=== PATIENT | female | born 1980 | race Caucasian/White ===

== ENCOUNTER → 2019-07-11 10:58 | Outpatient (CLI) | payer OTHER, SELFPAY ==
--- NOTE | 2019-07-11 | DI.CT.S_ITS ---
PROCEDURE: CT SOFT TISSUE NECK W CON INDICATIONS: Cervicalgia TECHNIQUE: After the administration of intravenous contrast, 3.0 mm axial sections acquired from the sella to the aortic arch. Additional oblique axial 3.0 mm sections acquired through the pharynx. 3 mm thick coronal and sagittal reformats were generated. For radiation dose reduction, the following was used: automated exposure control. COMPARISON: None. FINDINGS: Image quality: Excellent. Lymph nodes: Bilateral adenopathy is present within the neck with the largest lymph node identified in the right level IIA measuring 14 mm. There are extensive areas of patchy and confluent adenopathy within the supraclavicular regions bilaterally. The largest is identified on the left measuring 14 mm. Confluent areas of soft tissue density extends into the mediastinum with anterior mediastinal mass measuring 30 mm AP by 62 mm transverse. A contained area of central low-attenuation. Confluent soft tissue density also extends to the mid mediastinal encasing the ascending thoracic aorta as well as partially visualized portions of the pulmonary artery. Partially visualized hilar adenopathy is also present. There is mass effect on the subclavian vasculature with significant narrowing. The SVC is also significantly narrowed. Subcutaneous fat within the lower neck near the level of the clavicle and the straight a hazy appearance suggestive of fluid versus infiltrative soft tissue masses. Vessels: Visualized vasculature appears patent. Neck spaces: The oropharynx, nasopharynx, and pharynx demonstrate no mucosal lesions. The vocal cords, false vocal cords, pyriform sinuses, epiglottis, vallecula, and tongue base all appear normal. Extramucosal spaces appear unremarkable. Glands: The parotid and submandibular glands appear normal. Thyroid gland demonstrates bilateral foci of low attenuation.. Miscellaneous: Visualized brain and orbits appear normal. Minimal pleural effusions are noted. Superficial soft tissues appear normal. Bones: No suspicious bony lesions. Visualized sinuses and mastoids appear unremarkable. IMPRESSION: 1. Extensive adenopathy within the neck extending to the mediastinum and visualized hilar regions as described above. Overall appearance is highly concerning for neoplastic etiology such as lymphoma. 2. Marked narrowing of the mediastinal vasculature secondary to confluent soft tissue masses as above. Dictated by: Tatiana Wang M.D. on 07/11/2019 at 11:01 Approved by: Tatiana Wang M.D. on 07/11/2019 at 11:09
== END ==
PROVIDERS: PCP Family Medicine; Visit Provider Family Medicine
DX: M54.2 Cervicalgia (principal); R59.1 Generalized enlarged lymph nodes
CPT/HCPCS: 70491; Q9967

== ENCOUNTER → 2019-07-16 09:30 | Outpatient (CLI) | payer OTHER, SELFPAY ==
--- NOTE | 2019-07-16 09:44 | DI.CT.S_ITS ---
PROCEDURE: CT CHEST ABD PEL W CON INDICATIONS: Enlarged lymph nodes, unspecified TECHNIQUE: After the administration of oral and intravenous contrast, 5 mm thick sections acquired from the lung apices to the symphysis. 5 mm coronal and sagittal reformats were performed, with additional 7 mm coronal MIP reformats through the lungs. For radiation dose reduction, the following was used: automated exposure control, adjustment of mA and/or kV according to patient size. COMPARISON: [facility], CT, CT SOFT TISSUE NECK W CON, 07/11/2019, 11:04. FINDINGS: Image quality: Excellent. CHEST: Lungs and pleura: No acute airspace opacities. No pleural effusions or pneumothorax. Central and peripheral airways appear patent and normal in caliber. Mediastinum: There is marked mediastinal adenopathy. A large conglomerate cristal mass is present in the prevascular space, measuring 5.7 x 5.1 cm. There is a soft tissue density in the right cardiophrenic angle measuring 1.2 x 5.2 cm, likely enlarged cristal tissue. Right hilar lymphadenopathy is present measuring 2 cm. Heart size is normal. There is no pericardial effusion. Thoracic aorta and central pulmonary arteries are normal in size. There is moderate narrowing of superior vena cava by compression of mediastinal mass. Esophagus is normal in caliber. No hiatal hernia. Chest wall: Bilateral supraclavicular are present with enlarged lymph nodes measuring 1.2 x 1.8 cm on the left and 1.0 x 1.5 cm on the right. Enlarged lymph nodes are those seen in the axillae bilaterally. There is a 7 mm nodule in the right thyroid lobe. ABDOMEN: Solid organs: Liver is normal in size and enhancement. Gallbladder is normal. Biliary system is non dilated. Pancreas enhances normally. Spleen is normal in size and enhancement. No adrenal nodules. Kidneys demonstrate normal size and enhancement, without hydronephrosis. Peritoneum and bowel: Bowel loops demonstrate normal wall thickness and caliber. No free fluid or air. Nodes and vessels: Mild enlarged retrocrural lymph nodes measure up to 1 cm in short access. There are mild para-aortic lymph node measuring 1 cm in short axis. No retroperitoneal or mesenteric adenopathy by size criteria. Aorta and inferior vena cava are normal in size. Miscellaneous: No ventral hernias. PELVIS: Genitourinary: Bladder wall thickness is normal. IUD in uterus. There is a trace amount of free fluid, which is within physiologic limits. Miscellaneous: No inguinal hernias or adenopathy. Bones: No suspicious bony lesions. No vertebral body compression fractures. IMPRESSION: 1. Mediastinal, right hilar, bilateral supraclavicular and bilateral axillary lymphadenopathy, suspicious for lymphoma. Differential diagnosis is metastases. Infectious or inflammatory etiologies are felt less likely. If clinically indicated, the left axillary lymph nodes may be sampled percutaneously and ultrasound guidance. 2. Borderline enlarged retrocrural and retroperitoneal lymph nodes are indeterminate but likely represent the same malignant process. If clinically indicated, PET CT may be helpful. 3. A small right thyroid nodule. A thyroid ultrasound is suggested for followup. 4. Moderate narrowing of the superior vena cava by compression of Dictated by: Sandra Navarro M.D. on 07/16/2019 at 12:30 Approved by: Sandra Navarro M.D. on 07/16/2019 at 13:06
--- NOTE | 2019-07-18 14:20 | ONC.MSW ---
Description: New Referral Initial Navigation T/C Activity: Called pt to confirm that we've received her referral, introduced myself as the navigator, explained role and availability of ongoing support services. Pt is scheduled to have her biopsy with Dr. Rodgers tomorrow at . No immediate support/resource needs were identified at this time, will forward to scheduling for an urgent appt time.
== END ==
PROVIDERS: PCP Family Medicine; Visit Provider Family Medicine
DX: R59.1 Generalized enlarged lymph nodes (principal); E04.1 Nontoxic single thyroid nodule; I87.1 Compression of vein
CPT/HCPCS: 71260; 74177; Q9967

== ENCOUNTER 2019-07-24 08:38 | Day surgery (SDC) | payer OTHER, SELFPAY ==
[2019-07-22 12:40] VITALS: BMI 18.1
[2019-07-24] VITALS (7 sets, daily range): BP systolic 86–115; BP diastolic 46–75; PULSE 87–98; RESP 8–22; TEMP 36.2–37.7; O2SAT 16–100; BMI 18.1
--- NOTE | 2019-07-24 | PATH_ITS ---
[facility] Accession Number: [id number] . 01 Material submitted: . PART A: axilla - LEFT AXILLA LYMPH NODE (IN FORMALIN) PART B: flank - LEFT FLANK (RASH) . 01 Clinical history: . Per discussion with Dr. Saxena, who reviewed available clinic notes in the medical record: 39-year-old female who presented with neck pain, lymphadenopathy, and a morbilliform rash. A recent CT report notes bilateral axillary, mediastinal, and right hilar lymphadenopathy. . 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 B.) SKIN, LEFT FLANK, PUNCH BIOPSY: Lichenoid interface dermatitis, consistent with a drug eruption (see Comment B) . GUI 08/01/2019 1607 Local . 01 Comment: A.) Flow cytometry performed on an RPMI-preserved, portion of the fresh left axillary lymph node identified an abnormal blast population with intermediate cell size and expression of uniform, intermediate-level CD34; intermediate-high CD38; high-level CD7; low-intermediate CD45; probable low-level CD22, CD5, and CD33; and TdT on a large subset. There was no definitive coexpression of CD19 on the abnormal blasts, and they were negative for surface CD117, HLA-DR, CD13, CD15, CD16, CD64, CD14, CD11b, CD11c, CD10, CD20, CD2, CD3, CD4, CD8, CD56, CD57, CD103, kappa, and lambda. The complete flow cytometry report may be referenced in [id number]. Immunohistochemical studies performed on the paraffin-embedded left axillary lymph node tissue indicate that the abnormal CD34+ blasts express uniform cytoplasmic CD3 and variable CD79a; and are negative for myeloperoxidase, CD1a, CD5, CD2, CD4, CD8, CD56, and CD20. The blasts also appear predominantly negative for CD33 by immunohistochemistry. . 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 Although initial studies in pediatric populations with ETP-ALL indicated a very poor outcome, more recent studies have suggested prognosis for the ETP phenotype is not significantly different from that of other T-ALL phenotypes. A similar conclusion was also reached in a recent small study of adults with ETP-ALL/LBL. . Preliminary findings were discussed with Dr. Teodora Saxena on 07/30/2019 at 8:55 AM PST. . REFERENCES: 1. Yuliet SH, et al. WHO Classification of Tumours of Haematopoietic and Lymphoid Tissues. Revised 4th Ed., [employer], [place], 2017, pp 209-212. 2. JENY Braga, et al. (2016) CD33, not early precursor T-cell phenotype, is associated with adverse outcome in adult T-cell acute lymphoblastic leukaemia. Br. J. Haematology [id number]. . B.) Sections show interface changes with apoptotic keratinocytes, basket weaved stratum corneum, and a mild superficial perivascular lymphohistiocytic inflammatory infiltrate with scattered eosinophils. PAS stain is negative for fungal hyphae and shows only focal scarce spores consistent with Pityrosporum spores. Clinicopathological correlation is advised. . The diagnosis and interpretive comments for Part B of this case were provided by Dr. Sherlyn Mejia, Dermatopathologist. . . 01 Electronically signed: . Tiffany Garcia MD, Pathologist NPI- [id number] . 01 Gross description: . (A) Received in formalin, labeled left axilla lymph node, is a lymph node (1.3 x 1.0 x 0.6 cm). Serially sectioned and entirely submitted in cassette A1. (B) Received in formalin, labeled punch biopsy of rash, left flank, is a 0.4 x 0.3 x 0.2 cm punch biopsy of story-white skin. The resection margin is inked blue. Bisected and entirely submitted in cassette B1. ([id number]) /MRV 07/25/2019 1037 Local . 01 Microscopic: . A.) H/E-stained sections of Part A (the left axillary lymph node) reveal cross-sections of a mildly enlarged lymph node with extensive architectural effacement by an atypical cellular infiltrate with a diffuse histologic pattern. The atypical cells appear intermediate in size, and have very high nuclear to cytoplasmic ratio, open chromatin, and occasional small to moderate nucleoli. In some foci, the atypical cells exhibit a slight molding pattern next to each other, imparting a slightly corded infiltrative appearance. Mitotic figures are easily identified. Several areas of the lymph node have prominent erythrocyte congestion, but no definitive zones of either incipient or geographic necrosis are seen. . Select immunohistochemical studies* were performed on block A1 for further evaluation of the atypical infiltrate, with accompanying positive and negative controls. The atypical cells exhibit uniform cytoplasmic expression of CD3; uniform and strong surface and cytoplasmic CD7; uniform granular cytoplasmic expression of CD34 in the best-preserved, best-stained areas; and variable CD79a. The atypical cells are negative for myeloperoxidase, CD1a, CD2, CD5, CD4, CD8, CD56, and CD20 by immunohistochemistry. An immunostain for CD33 exhibits reactivity on a large subset of tissue histiocytes and probable dendritic cells in the tissue; however, the atypical cells appear predominantly negative for CD33 by immunohistochemistry. A moderate subset of background mature T-cells with a normal to slightly elevated CD4:CD8 ratio of about 5:1 are present throughout the tissue; and a smaller subset of background CD20+/CD79a+ B-cells form scattered cortical collections/nodules. . * Technical note: These tests and their performance characteristics have been determined by [facility]. They have not been cleared or approved by the U.S. Food and Drug Administration. The FDA has determined that such clearance or approval is not necessary. These tests are used for clinical purposes, and should not be regarded as investigational or for research. . The technical component of the myeloperoxidase and CD33 immunohistochemical studies was performed by [facility] in [place], [place]; with interpretation of these studies performed by Dr. Tiffany Garcia, Hematopathologist at [facility]. . 01 Pathologist provided ICD-10: C83.54, L30.9 . 01 CPT . 567767, 947144, S71221, R62656, X55730 Performed at: 01 [facility] [address] [place] [address], [place], [place] [id number] MD Kelby Oconnell MD Phone: [phone]
--- NOTE | 2019-07-24 08:54 | SUR.PREOP ---
PT HAS FULL BODY RASH, HAS HAD THIS SINCE FOR SEVERAL DAYS, STATES DR CORREA IS AWARE, STATES SHE IS NOW ON PREDNISONE FOR THE ITCH AND THIS IS HELPING,
--- NOTE | 2019-07-24 09:41 | PM.PREOP ---
Pre-operative Note Interval Note History & Physical reviewed/Exam performed by Physician: Yes Changes to H&P: Yes H&P completed within 30 days and has changed as indicated here:: Patient has a diffuse maculopapular rash on her chest and arms. Has been on prednisone taper by her .
[2019-07-24] MEDS: CEFAZOLIN 2 GM/100 ML FROZ.PIGGY IV (09:50)
[2019-07-24] MEDS: BUPIVACAINE 0.25% W/ EPI (PF) 10 ML VIAL 20 ML INJ (10:10)
--- NOTE | 2019-07-24 11:11 | PM.OP.1 ---
Operative Date/Time/Diagnoses Date of procedure: 07/24/19 Time of procedure: 11:12 Pre-op diagnosis: Neck, chest and axillary lymphadenopathy with morbilliform rash Post-op diagnosis: same Procedure & Clinicians Procedure: left axillary lymph node excisional biopsy, left flank skin punch biopsy Same procedure as scheduled: Yes Indications: lymphadenopathy, morbiliform rash Surgeon: Eulalia Huddleston Yes if Unassisted: Yes Anesthesia Type: General (LMA) Operative Notes Findings: large axillary lymph nodes; diffuse morbiliform rash on neck, chest, and abdomen Closure Type: primary Specimen(s): other (Left axillary lymph node, left flank 4 mm skin punch biopsy) Estimated Blood Loss (mL): 5 Procedure in detail: The patient was brought into the operating room and placed supine on the OR table. Sequential compression devices were placed on both legs and turned on. Appropriate perioperative antibiotics were given prior to the start of surgery. General anesthesia was induced the patient was intubated with an LMA. The left chest and axilla were prepped and draped in sterile fashion. Surgical time-out was conducted. Local anesthetic was injected under the skin of a skin crease in the left axilla overlying the a group of palpable lymph nodes. An 8 cm curvilinear incision was then made in the skin of the axillary skin crease. Dissection was then carried down through the dermis and subcutaneous fat until the clavicle pectoral fascia was reached. The clavipectoral fascia was then opened. I palpated within the axillary fat and identified a large lymph node. I then gently grasped the fat tissue overlying the node and carefully dissected out the node. I used silk ties to tie off the vascular and lymphatic vessels going to the node. After prolonged tedious dissection I was finally able to get the node out. It was adherent to a couple of other nodes in the surrounding axillary fascia. Once the node was freed, it was passed off the field. I packed a dry Ray-Abhinav in the axilla. I then used a fresh 10 blade to cut the note in half, and then bivalved the larger of the 2 halves. Two pieces were placed in RPMI and 1 piece was placed in formalin. I turned my attention back to the axilla common removed the packed Ray-Abhinav. I irrigated out the axilla, and found no significant bleeding. I then closed the clavipectoral fascia with a 3 0 Vicryl suture, and then closed the dermis with interrupted 3 0 Vicryl sutures. I then closed the skin with a subcuticular 4 Monocryl suture and sealed the skin edges with Dermabond. I then turned my attention to the confluent rash on the left flank about 15 cm inferior to the area of the axillary incision. Using a 4 mm punch I made a punch biopsy incision in the skin, and removed a 4 mm specimen. I held pressure to gain hemostasis, and then sealed the skin edges together with Dermabond. Local anesthetic was infiltrated into the site of the punch biopsy. The specimen was then passed off the table for pathology. Patient was awakened from anesthesia and extubated. She was transferred to the postanesthesia care unit in stable condition. Complications: none Post-operative Condition: stable Disposition: PACU
== END 2019-07-24 12:26 | disposition home or self-care (01) ==
PROVIDERS: PCP Family Medicine; Visit Provider Surgery
PROC: (CPT 38525; principal; 2019-07-24 10:00)
DX: C83.5 Lymphoblastic (diffuse) lymphoma (principal); L30.9 Dermatitis, unspecified
CPT/HCPCS: 38525; 11104; J0690; J2250; J2405; J2704; J3010

== ENCOUNTER → 2019-08-05 11:30 | Outpatient (CLI) | payer OTHER, SELFPAY ==
[2019-08-05 11:53] LABS: Add Manual Diff / Slide Review NO; Basophils Absolute Auto 0 /uL (0-100); Basophils Percent Auto 0.3 % (0-2); Eosinophils Absolute Auto 0 /uL (0-450); Eosinophils Percent Auto 0.5 % (2-4); Hematocrit 44.1 % (36-46); Hemoglobin 14.9 g/dL (12.0-16.0); Lymphocytes Absolute Auto 900 /uL (1100-4500); Lymphocytes Percent Auto 11.1 % (25-40); Mean Corpuscular HGB Conc 33.7 % (30-36); Mean Corpuscular Hemoglobin 32.3 PG (26-34); Mean Corpuscular Volume 95.9 fL (80-100); Monocytes Absolute Auto 200 /uL (0-900); Monocytes Percent Auto 2.2 % (3-14); Neutrophils Absolute Auto 6800 /uL (1500-7000); Neutrophils Percent Auto 85.9 % (50-75); Platelet Count 304 X10^3/uL (150-400); Red Cell Distribution Width 13.9 % (11.6-14.8); White Blood Cell Count 7.9 X10^3/uL (4.5-11.0)
[2019-08-05 12:04] LABS: Alanine Aminotransferase 15 IU/L (<35); Albumin Globulin Ratio 1.4 (1.0-2.8); Alkaline Phosphatase 81 U/L (38-126); Aspartate Aminotransferase 19 IU/L (14-36); BUN Creatinine Ratio 26.7 (6-22); Bilirubin Total 0.4 mg/dL (0.2-1.3); Blood Urea Nitrogen 16 mg/dL (7-17); Carbon Dioxide 31 mmol/L (22-32); Chloride 98 mmol/L (98-107); Estimated Glomerular Filt Rate > 60.0 mL/min (>60); Globulin 3.7 g/dL (1.7-4.1); Glucose 103 mg/dL (70-100); HEMOLYSIS < 15 (0-50); Lactate Dehydrogenase 530 U/L (313-618); Sodium 142 mmol/L (137-145); Total Protein 8.7 g/dL (6.3-8.2)
[2019-08-05 15:32] LABS: Hepatitis B Surface Antigen NEGATIVE s/c (NEGATIVE)
[2019-08-05 15:50] LABS: Hep C Virus Ab w/Reflex Quant NEGATIVE s/c (NEGATIVE)
[2019-08-09 07:29] LABS: Hepatitis B Surf Ab Qualitativ Reactive (Nonreactive)
== END ==
PROVIDERS: PCP Family Medicine; Visit Provider Internal Medicine Hematology & Oncology
DX: C83.50 Lymphoblastic (diffuse) lymphoma, unspecified site (principal)
CPT/HCPCS: 36415; 80053; 83615; 85025; 86706; 86803; 87340

== ENCOUNTER → 2019-08-08 13:43 | Outpatient (CLI) | payer OTHER, SELFPAY ==
--- NOTE | 2019-08-08 13:44 | DI.CT.S_ITS ---
PROCEDURE: CT HEAD/BRAIN WO/W CON INDICATIONS: T cell lymphoma TECHNIQUE: 4.5 mm thick angled axial sections acquired from the foramen magnum to the vertex before and after the administration of intravenous contrast, with coronal and sagittal reformats. For radiation dose reduction, the following was used: automated exposure control, adjustment of mA and/or kV according to patient size. COMPARISON: None. FINDINGS: Image quality: Excellent. CSF Spaces: Basal cisterns are patent. No extra-axial fluid collections. Ventricles are normal in size and shape. Brain: No midline shift. No intracranial bleeds or masses. No abnormal intracranial enhancement. Soliz-white interface appears normal. Skull and face: Calvarium and visualized facial bones appear intact, without suspicious lesions. Sinuses: Mucosal thickening noted in maxillary sinuses and the sphenoid sinuses bilaterally. Frothy air fluid level noted in the right sphenoid sinus. Small air-fluid levels noted in the right maxillary sinus and left sphenoid sinus. mastoids are clear. IMPRESSION: 1. No acute intracranial disease process. 2. No abnormal mass or mass effect. 3. Bilateral maxillary and sphenoid sinus mucosal thickening. Finding may represent sinusitis, however finding is nonspecific and other etiologies including lymphoma involvement could produce a similar appearance. Dictated by: Ivana Giordano MD, PhD on 08/08/2019 at 14:23 Approved by: Ivana Giordano MD, PhD on 08/08/2019 at 14:29
== END ==
PROVIDERS: PCP Family Medicine; Visit Provider Internal Medicine Hematology & Oncology
DX: C83.50 Lymphoblastic (diffuse) lymphoma, unspecified site (principal)
CPT/HCPCS: 70470; Q9967

== ENCOUNTER → 2019-11-04 08:36 | Outpatient (CLI) | payer OTHER, SELFPAY ==
[2019-11-04 09:10] LABS: Alanine Aminotransferase 123 IU/L (<35); Albumin 4.5 g/dL (3.5-5.0); Albumin Globulin Ratio 1.6 (1.0-2.8); Alkaline Phosphatase 57 U/L (38-126); Aspartate Aminotransferase 58 IU/L (14-36); BUN Creatinine Ratio 29.5 (6-22); Bilirubin Total 0.2 mg/dL (0.2-1.3); Bilirubin Unconjugated 0.4 mg/dL (0.0-1.1); Blood Urea Nitrogen 13 mg/dL (7-17); Calcium 9.8 mg/dL (8.4-10.2); Carbon Dioxide 31 mmol/L (22-32); Chloride 104 mmol/L (98-107); Estimated Glomerular Filt Rate > 60.0 mL/min (>60); Globulin 2.9 g/dL (1.7-4.1); Glucose 103 mg/dL (70-100); HEMOLYSIS < 15 (0-50); Potassium 3.9 mmol/L (3.4-5.1); Sodium 141 mmol/L (137-145); Total Protein 7.4 g/dL (6.3-8.2)
[2019-11-04 09:16] LABS: Basophils Absolute Auto 0 /uL (0-100); Eosinophils Absolute Auto 0 /uL (0-450); Eosinophils Percent Auto 0.1 % (2-4); Hematocrit 31.7 % (36-46); Hemoglobin 10.9 g/dL (12.0-16.0); Lymphocytes Absolute Auto 300 /uL (1100-4500); Lymphocytes Percent Auto 11.8 % (25-40); Mean Corpuscular HGB Conc 34.4 % (30-36); Mean Corpuscular Hemoglobin 30.6 PG (26-34); Mean Corpuscular Volume 88.9 fL (80-100); Monocytes Absolute Auto 500 /uL (0-900); Monocytes Percent Auto 21.5 % (3-14); Neutrophils Absolute Auto 1500 /uL (1500-7000); Neutrophils Percent Auto 65.6 % (50-75); Platelet Count 322 X10^3/uL (150-400); Red Blood Cell Count 3.56 X10^6/uL (4.0-5.2); Red Cell Distribution Width 13.9 % (11.6-14.8); White Blood Cell Count 2.4 X10^3/uL (4.5-11.0)
[2019-11-04 09:58] LABS: Add Manual Diff / Slide Review SLIDE REVIEW
[2019-11-04 10:05] LABS: Anisocytosis 1+
== END ==
PROVIDERS: PCP Family Medicine; Referring Provider Nurse Practitioner Adult Health; Visit Provider Nurse Practitioner Adult Health
DX: C91.00 Acute lymphoblastic leukemia not having achieved remission (principal)
CPT/HCPCS: 36415; 80048; 80076; 85025

== ENCOUNTER → 2019-11-06 08:44 | Outpatient (CLI) | payer OTHER, SELFPAY ==
[2019-11-06 09:38] LABS: Add Manual Diff / Slide Review NO; Basophils Absolute Auto 0 /uL (0-100); Basophils Percent Auto 0.5 % (0-2); Eosinophils Absolute Auto 0 /uL (0-450); Eosinophils Percent Auto 0.1 % (2-4); Hematocrit 29.1 % (36-46); Lymphocytes Absolute Auto 300 /uL (1100-4500); Lymphocytes Percent Auto 12.4 % (25-40); Mean Corpuscular HGB Conc 34.5 % (30-36); Mean Corpuscular Hemoglobin 30.8 PG (26-34); Mean Corpuscular Volume 89.3 fL (80-100); Monocytes Absolute Auto 500 /uL (0-900); Monocytes Percent Auto 18.6 % (3-14); Neutrophils Absolute Auto 1700 /uL (1500-7000); Neutrophils Percent Auto 68.4 % (50-75); Platelet Count 342 X10^3/uL (150-400); Red Blood Cell Count 3.25 X10^6/uL (4.0-5.2); Red Cell Distribution Width 14.1 % (11.6-14.8); White Blood Cell Count 2.5 X10^3/uL (4.5-11.0)
[2019-11-06 09:46] LABS: Alanine Aminotransferase 86 IU/L (<35); Albumin 4.2 g/dL (3.5-5.0); Albumin Globulin Ratio 1.5 (1.0-2.8); Alkaline Phosphatase 48 U/L (38-126); Aspartate Aminotransferase 39 IU/L (14-36); BUN Creatinine Ratio 25.9 (6-22); Bilirubin Total 0.3 mg/dL (0.2-1.3); Bilirubin Unconjugated 0.3 mg/dL (0.0-1.1); Blood Urea Nitrogen 14 mg/dL (7-17); Calcium 9.6 mg/dL (8.4-10.2); Carbon Dioxide 29 mmol/L (22-32); Chloride 105 mmol/L (98-107); Estimated Glomerular Filt Rate > 60.0 mL/min (>60); Globulin 2.8 g/dL (1.7-4.1); Glucose 99 mg/dL (70-100); HEMOLYSIS < 15 (0-50); Potassium 3.7 mmol/L (3.4-5.1); Sodium 140 mmol/L (137-145)
== END ==
PROVIDERS: PCP Family Medicine; Referring Provider Nurse Practitioner Adult Health; Visit Provider Nurse Practitioner Adult Health
DX: C91.00 Acute lymphoblastic leukemia not having achieved remission (principal)
CPT/HCPCS: 36415; 80048; 80076; 85025

== ENCOUNTER → 2019-12-24 16:00 | Oncology outpatient (ONC) | payer OTHER, SELFPAY ==
--- NOTE | 2019-08-05 09:35 | ONC.CONS ---
History of Present Illness - Data of Consult Patient: new to practice Consult date: 08/05/19 Requesting Physician: Mayo Hillman MD Primary Care Provider: Mayo Hillman MD - Consult Narrative Reason for consult: Early T precusor lymphoblastic lymphoma Narrative: Maryellen Guerra is a 39 year old female about in May 2019, patient noted sensation of strangulation in the throat, and feeling swelling and pain of the neck. She was seen by Dr. Mayo Hillman from [facility] on 07/18/2019. Laboratory tests showed WBC 6.7, HGB 12.9, HCT 37.9, PLT 376, CRP 6.1, ESR 26, TSH 1.57, Cr 0.66, Felipe 9.4, Protein 7.2, AST 14, Alt 9, ALP 75, total lupe 0.3. On 07/11/2019, patient underwent CT neck that showed extensive adenopathy within the neck extending to the mediastinum and visualized hilar regions and marked narrowing of the mediastinal vascular secondary to confluent soft tissue masses. Same day CT of the chest abdomen pelvis showed mediastinal, right hilar, bilateral supraclavicular and bilateral axillary lymphadenopathy, borderline enlarged retrocrural and retroperitoneal lymph nodes, a small thyroid nodule, and moderate narrowing of the SVC by compression. About in 07/17/2019, she developed skin erythematous rashes affecting almost her whole body after taking Z-pack. The rashes felt burning and itching and she was started on Pred 60 mg on 07/23/2019 and is currently being tapered. She is now taking 20 mg daily. She was referred to Dr. Rodgers. On 07/24/2019, patient underwent excisional biopsy of the left axillary lymph node, and punch biopsy the left flank skin.The pathology showed early T-cell precursor acute lymphoblastic lymphoma. The skin punch biopsy showed drug eruption. Clinically, she reports no night sweats. No fever and no chills. No headache. No n/v. No SOB. No chest pain. No abdominal pain. No diarrhea and no constipation. She reports a weight loss about 5-6 lbs over last month. She feels tired most of the time. CC: Teodora Saxena MD Home Medications and Allergies Home Medications Medication Instructions Recorded Confirmed Type levonorgestrel 20 mcg/24 hours (5 INTRAUTERINE 07/19/19 07/19/19 History yrs) 52 mg intrauterine device prednisone 20 mg PO TID 07/24/19 07/24/19 History Allergies Allergy/AdvReac Type Severity Reaction Status Date / Time azithromycin Allergy Unknown Rash Verified 08/05/19 10:07 Medical History - Medical, Surgical, Family History Medical History: Medical History (Last Updated 07/23/19 @ 14:56 by Devi Emanuel RN) Heart murmur Surgical History: Surgical History (Last Updated 08/05/19 @ 10:27 by Teodora Saxena MD) No history of previous surgery Belk teeth extracted Family History: Family History (Last Updated 08/05/19 @ 10:27 by Teodora Saxena MD) Grandmother Breast cancer - Social History Smoking Status: Never smoker Substance Use Type: does not use Alcohol Intake: never Review of Systems All systems PM: reviewed and no additional remarkable complaints except as stated Exam Vital signs: Last Vital Signs Temp 98.7 F 08/05/19 10:07 Pulse 135 H 08/05/19 10:07 Resp 18 08/05/19 10:07 BP 130/78 08/05/19 10:07 Pulse Ox 99 08/05/19 10:07 ECOG 1 Narrative: Gen: WD, thin, NAD, pleasant and cooperative, accompanied by her Charlie HEENT: NCAT, EOMI, PERRLA, anicteric sclera. Neck: tender and irregular shaped matted lymph nodes at level II and left III on the right side; no palpable nodes on the left side. Respiratory: CTAB, no wheezes audible. No JVD Cardiovascular: RRR, S1 and S2 normal, no M/G/R. Abdomen: Soft, NTND, BS normal, no palpable organomegaly Extremities: No LE pitting edema. Lymphatic: tender and irregular shaped matted lymph nodes at level II and left III on the right side; no palpable nodes on the left side. Palpable axilary lymph nodes on both sides, measuring about 1 cm in diameter. No lymph nodes palpable in the groins bilaterally. Neurological: AOx3, CN II-XII grossly intact. No focal motor or sensory deficit. Psychiatric: Normal affect; normal thought process; cooperative, no depression, no anxiety. Assessment and Plan (1) TLL (T-cell lymphoblastic lymphoma) Overview: 39 years old presented with diffuse lymphadenopathy most prominent in the right upper neck, and with SVC syndrome. She was found to have rrttj-G-rtei precursor acute lymphoblastic lymphoma after excisional biopsy of her left axillary lymph node on 07/24/2019. Skin punch biopsy was negative for lymphoma involvement. Assessment: [facility] Pathology Dr. Tiffany Garcia called me multiple times and discussed the diagnosis of the excisional left axillary lymph node biopsy. 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 I tried to explain to the patient and his that the T-cell lymphoma is an uncommon type of lymphoma compared to B-cell lymphoma. Usually it carries a poor prognosis most of the time based on my discussion with Dr. Kimberly Garcia and my literature review. In one series from [facility], the complete remission rate /complete remission with incomplete platelet recovery rate in patients with ETP-ALL/LBL was significantly lower than that of non?ETP-ALL/LBL patients (73% vs 91%; P = .03). The median overall survival for patients with ETP-ALL/LBL was 20 months vs not reached for the non?ETP-ALL/LBL patients (P = .008). In this series, patients were treated with either hyperCVAD, hyper-CVAD + nelarabine or augmented Ttjcgz-Uongyvzpi-Qqsniox (BFM) regimen (n = 24) (Blood 2016;127:1863): I recommended that we obtain a second opinion from [facility]. In addition I would obtain laboratory tests including screening for hepatitis-C and B. I will obtain a CT scan of the head to exclude possibility of involvement of the central nervous systems. I also talked with the patient about possible bone marrow aspiration biopsy. Patient currently is tapering steroids. I talked with her that probably I will wait until steroids are taper off and then proceed bone marrow aspiration biopsy. Plan 1. CBC, CMP, LDH, B2M 2. HBsAg, HBsAb, HepC Ab. 3. CT head wo/w contrast 4. Echocardiogram 5. PET/CT 6. [facility] Rhys Quan for 2nd opinoin 7. Continue prednisone taper 8. RTC in 1-2 weeks
[2019-08-05 10:07] VITALS: BP 130/78; PULSE 135; RESP 18; TEMP 37.1; O2SAT 99
--- NOTE | 2019-08-12 10:31 | PC.NURSE ---
Addendum entered by Bernadette Rodríguez R.N. 08/21/19 16:44: DR GALVAN CALLED BY DR SAXENA AT [phone] TO EXPEDITE APPT FOR PATIENT Original Note: Patient called to let Dr. Saxena know that [facility] could only schedule [facility] as early as 08/29/19. She wants to know whether he can do anything so that the appointment can be moved earlier.
--- NOTE | 2019-08-19 12:57 | P.PNONC_ITS ---
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 She was seen by Dr. Mayo Hillman from [facility] on 07/18/2019. Laboratory tests showed WBC 6.7, HGB 12.9, HCT 37.9, PLT 376, CRP 6.1, ESR 26, TSH 1.57, Cr 0.66, Felipe 9.4, Protein 7.2, AST 14, Alt 9, ALP 75, total lupe 0.3. On 07/11/2019, patient underwent CT neck that showed extensive adenopathy within the neck extending to the mediastinum and visualized hilar regions and marked narrowing of the mediastinal vascular secondary to confluent soft tissue masses. Same day CT of the chest abdomen pelvis showed mediastinal, right hilar, bilateral supraclavicular and bilateral axillary lymphadenopathy, borderline enlarged retrocrural and retroperitoneal lymph nodes, a small thyroid nodule, and moderate narrowing of the SVC by compression. About in 07/17/2019, she developed skin erythematous rashes affecting almost her whole body after taking Z-pack. The rashes felt burning and itching and she was started on Pred 60 mg on 07/23/2019 and is currently being tapered. She is now taking 20 mg daily. She was referred to Dr. Rodgers. On 07/24/2019, patient underwent excisional biopsy of the left axillary lymph node, and punch biopsy the left flank skin.The pathology showed early T-cell precursor acute lymphoblastic lymphoma. The skin punch biopsy showed drug eruption. Clinically, she reports no night sweats. No fever and no chills. No headache. No n/v. No SOB. No chest pain. No abdominal pain. No diarrhea and no constipation. She reports a weight loss about 5-6 lbs over last month. She feels tired most of the time. Interim Events: Since her previous visit, patient has tapered off the prednisone about 1 week ago. In addition patient said that she has had 1 episode of rashes which has already resolved today. Patient is reporting enlargement of the neck lymph nodes, especially on the right. She is having tightness of the neck and increased swelling sensation of the upper extremities on both sides. However she denies any worsening shortness of breath or chest pain. She denies any abdominal pain. She denies any diarrhea or constipation. She is scheduled the second opinion with Dr. Lopez on 08/29/2019. - Patient Self-Reported Symptoms SR ears, nose, mouth, throat issues: Congestion, Cough, Swollen glands SR Hematologic issues: Swollen lymph nodes - Additional ROS All systems PM: reviewed and no additional remarkable complaints except as stated Home Medications and Allergies Home Medications Medication Instructions Recorded Confirmed Type levonorgestrel 20 mcg/24 hours (5 INTRAUTERINE 07/19/19 07/19/19 History yrs) 52 mg intrauterine device prednisone 20 mg PO TID 07/24/19 07/24/19 History Allergies Allergy/AdvReac Type Severity Reaction Status Date / Time azithromycin Allergy Unknown Rash Verified 08/05/19 10:07 Exam Vital signs: Last Vital Signs Temp 98.7 F 08/05/19 10:07 Pulse 135 H 08/05/19 10:07 Resp 18 08/05/19 10:07 BP 130/78 08/05/19 10:07 Pulse Ox 99 08/05/19 10:07 ECOG 1 Narrative: Gen: WD, thin, NAD, pleasant and cooperative, accompanied by her Dr. Guerra HEENT: NCAT, EOMI, PERRLA, anicteric sclera. Neck: tender and irregular shaped matted lymph nodes at level II and left III on the right side; palpable nodes on the left side but smaller. Respiratory: CTAB, no wheezes audible. No JVD Cardiovascular: RRR, S1 and S2 normal, no M/G/R. Abdomen: Soft, NTND, BS normal, no palpable organomegaly Extremities: Slight swelling noted both upper extremities. No LE pitting edema. Lymphatic: cervical nodes see above. Palpable axillary lymph nodes on both sides, measuring about 1-2 cm in diameter. No apparent lymph nodes palpable in the groins bilaterally. Neurological: AOx3, CN II-XII grossly intact. No focal motor or sensory deficit. Psychiatric: Normal affect; normal thought process; no depression, no anxiety. Results - Labs Reviewed. Assessment and Plan (1) TLL (T-cell lymphoblastic lymphoma) Overview: 39 years old presented with diffuse lymphadenopathy most prominent in the right upper neck, and with SVC syndrome. She was found to have lumzo-P-ilfy precursor acute lymphoblastic lymphoma after excisional biopsy of her left axillary lymph node on 07/24/2019. Skin punch biopsy was negative for lymphoma involvement. Assessment: I talked with the patient I will continue the workup. Will schedule bone marrow aspirate biopsy in the coming days. Will encourage the patient get the PET scan done. I will try to touch base with Dr. Lopez, regarding the diagnosis and treatment. Briefly I have touched base with her and her Dr. Guerra about the regimen hyper-CVAD. Plan 1. BMA/Bx in am 2. PET/CT on Mon 3. [facility] Dr. Lopez, Rhys for 2nd opinoin pending
[2019-08-20 11:05] LABS: Add Manual Diff / Slide Review NO; Basophils Absolute Auto 0 /uL (0-100); Eosinophils Absolute Auto 100 /uL (0-450); Eosinophils Percent Auto 3.8 % (2-4); Hematocrit 37.4 % (36-46); Hemoglobin 12.9 g/dL (12.0-16.0); Lymphocytes Absolute Auto 1000 /uL (1100-4500); Lymphocytes Percent Auto 33.6 % (25-40); Mean Corpuscular HGB Conc 34.4 % (30-36); Mean Corpuscular Hemoglobin 32.5 PG (26-34); Mean Corpuscular Volume 94.4 fL (80-100); Monocytes Absolute Auto 100 /uL (0-900); Monocytes Percent Auto 2.5 % (3-14); Neutrophils Absolute Auto 1800 /uL (1500-7000); Neutrophils Percent Auto 59.1 % (50-75); Platelet Count 232 X10^3/uL (150-400); Red Blood Cell Count 3.96 X10^6/uL (4.0-5.2); White Blood Cell Count 3.1 X10^3/uL (4.5-11.0)
--- NOTE | 2019-08-20 13:14 | ONC.PROCEDUR ---
Date of procedure: 08/20/19 Diagnosis: Precursoe T-ALL Onc Bone Marrow: bone marrow biopsy and aspiration Procedure: Patient was instructed to lie on her left side. Right posterior iliac crest was identified, sterilized, draped per standard procedure. 2% lidocaine was used to achieve local anesthesia. I inserted the bone marrow aspiration needle without difficulty. I aspirated 0.5 cc sample for slide preparation followed by aspiration of about 10 cc of bone marrow. I was having problem aspirating more bone marrow during the procedure. Thereafter I inserted the [place] bone core needle biopsy needle and obtained a roughly 3 cm long core sample. Patient overall tolerated the procedure well. No immediate complications.
--- NOTE | 2019-08-27 09:43 | PC.NURSE ---
Patient called and would like to know results of bone marrow biopsy of last week. Request given to Dr. Saxena with this note. She can be reached at [phone].
--- NOTE | 2019-08-27 11:28 | ONC.MSW ---
Description: Auth. for [facility]/transfer of care Activity: Called pt and confirmed that the specialist that coordinates referrals from to [facility] re: Lance Authorizations called me to confirm that everything has been authorized and approved now for her to start treatment at [facility] on . [employer] also expressed that we can continue to be available for her for any supportive care, resources or support here in the community. She expressed understanding. No further needs are indicated at this time.
--- NOTE | 2019-11-18 14:49 | ONC.MSW ---
Description: Initial Referral Navigation Activity: Pt is being referred back to [facility] from [facility] in order for her to have her treatments done locally. Reviewed the referral for any new urgent needs, forwarded to scheduling for an urgent time slot-20 minutes, per Dr. Saxena.
[2019-11-19 13:34] VITALS: BP 105/66; PULSE 117; RESP 20; TEMP 36.8; O2SAT 99
--- NOTE | 2019-11-19 13:39 | ONC.PN ---
PN -Subjective Interval history: ID/CC: 39 year old female with early T-cell precursor acute lymphoblastic lymphoma Oncology History: Maryellen Guerra is a 39 year old female about in May 2019, patient noted sensation of strangulation in the throat, and feeling swelling and pain of the neck. She was seen by Dr. Mayo Hillman from [facility] on 07/18/2019. Laboratory tests showed WBC 6.7, HGB 12.9, HCT 37.9, PLT 376, CRP 6.1, ESR 26, TSH 1.57, Cr 0.66, Felipe 9.4, Protein 7.2, AST 14, Alt 9, ALP 75, total lupe 0.3. On 07/11/2019, patient underwent CT neck that showed extensive adenopathy within the neck extending to the mediastinum and visualized hilar regions and marked narrowing of the mediastinal vascular secondary to confluent soft tissue masses. Same day CT of the chest abdomen pelvis showed mediastinal, right hilar, bilateral supraclavicular and bilateral axillary lymphadenopathy, borderline enlarged retrocrural and retroperitoneal lymph nodes, a small thyroid nodule, and moderate narrowing of the SVC by compression. About in 07/17/2019, she developed skin erythematous rashes affecting almost her whole body after taking Z-pack. The rashes felt burning and itching and she was started on Pred 60 mg on 07/23/2019 and is currently being tapered. She is now taking 20 mg daily. She was referred to Dr. Rodgers. On 07/24/2019, patient underwent excisional biopsy of the left axillary lymph node, and punch biopsy the left flank skin.The pathology showed early T-cell precursor acute lymphoblastic lymphoma. The skin punch biopsy showed drug eruption. Clinically, she reports no night sweats. No fever and no chills. No headache. No n/v. No SOB. No chest pain. No abdominal pain. No diarrhea and no constipation. She reports a weight loss about 5-6 lbs over last month. She feels tired most of the time. Interim Events: Since her previous visit, he has been evaluated at [facility]. 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 Patient apparently has been scheduled for bone marrow transplant. However due to the current COVID pandemic, the transplant has been on hold. Patient presents here today for follow-up visit. Patient has been feeling slightly tired. She is scheduled for blood transfusion tomorrow including red blood cell and platelets. Patient denies any fever or chills. Patient denies any nausea vomiting. No diarrhea and no constipation. Overall she has been doing well. - Patient Self-Reported Symptoms SR ears, nose, mouth, throat issues: Congestion, Cough, Swollen glands SR Skin issues: Dry skin, Skin color changes SR Hematologic issues: Swollen lymph nodes - Additional ROS All systems PM: reviewed and no additional remarkable complaints except as stated (those mentioned in HPI, Interval History and SR above.) Home Medications and Allergies Home Medications Medication Instructions Recorded Confirmed Type levonorgestrel 20 mcg/24 hours (5 20 mcg INTRAUTERINE DAILY 07/19/19 11/19/19 History yrs) 52 mg intrauterine device acyclovir 800 mg PO BID 11/19/19 11/19/19 History cholecalciferol (vitamin D3) 1,000 unit PO DAILY 11/19/19 11/19/19 History [Vitamin D3] fluconazole 200 mg PO DAILY 11/19/19 11/19/19 History levofloxacin 750 mg PO DAILY 11/19/19 11/19/19 History ondansetron 8 mg PO Q8H PRN 11/19/19 11/19/19 History polyethylene glycol 3350 17 g PO DAILY PRN 11/19/19 11/19/19 History prochlorperazine maleate 5 mg PO QID PRN 11/19/19 11/19/19 History sulfamethoxazole-trimethoprim 1 tab PO BID 11/19/19 11/19/19 History Allergies Allergy/AdvReac Type Severity Reaction Status Date / Time azithromycin Allergy Unknown Rash Verified 08/05/19 10:07 Exam Vital signs: Last Vital Signs Temp 98.3 F 11/19/19 13:34 Pulse 117 H 11/19/19 13:34 Resp 20 11/19/19 13:34 BP 105/66 11/19/19 13:34 Pulse Ox 99 11/19/19 13:34 Narrative: ECOG 1 Vitals above reviewed Constitutional: WDWN, well nourished, and well groomed. NAD. Pleasant and cooperative. HEENT: NCAT, EOMI, PERRLA. Anicteric sclera. Respiratory: No use of accessory muscles. Cardiovascular: No edema of lower extremities. Musculoskeletal: normal gait and station Neurological: CN II-XII grossly intact. No focal motor or sensory deficit. Psychiatric: Normal judgment and insight. AOx3. Normal memory (recent and remote). Normal mood and affect. Results - Labs Laboratory Last Values WBC 3.1 X10^3/uL (4.5-11.0) L 08/20/19 10:52 RBC 3.96 X10^6/uL (4.0-5.2) L 08/20/19 10:52 Hgb 12.9 g/dL (12.0-16.0) 08/20/19 10:52 Hct 37.4 % (36-46) 08/20/19 10:52 MCV 94.4 fL (80-100) 08/20/19 10:52 MCH 32.5 PG (26-34) 08/20/19 10:52 MCHC 34.4 % (30-36) 08/20/19 10:52 RDW 15.0 % (11.6-14.8) H 08/20/19 10:52 Plt Count 232 X10^3/uL (150-400) 08/20/19 10:52 Neut % (Auto) 59.1 % (50-75) 08/20/19 10:52 Lymph % (Auto) 33.6 % (25-40) 08/20/19 10:52 [place] % (Auto) 2.5 % (3-14) L 08/20/19 10:52 Eos % (Auto) 3.8 % (2-4) 08/20/19 10:52 Baso % (Auto) 1.0 % (0-2) 08/20/19 10:52 Neut # (Auto) 1800 /uL (3236-3086) 08/20/19 10:52 Lymph # (Auto) 1000 /uL (9599-0153) L 08/20/19 10:52 [place] # (Auto) 100 /uL (0-900) 08/20/19 10:52 Eos # (Auto) 100 /uL (0-450) 08/20/19 10:52 Baso # (Auto) 0 /uL (0-100) 08/20/19 10:52 Assessment and Plan (1) TLL (T-cell lymphoblastic lymphoma) Overview: 39 years old presented with diffuse lymphadenopathy most prominent in the right upper neck, and with SVC syndrome. She was found to have qrqdx-P-tryv precursor acute lymphoblastic lymphoma after excisional biopsy of her left axillary lymph node on 07/24/2019. Skin punch biopsy was negative for lymphoma involvement. Patient currently is being followed at [facility]. She completed 4 cycles of hyper CVAD and is scheduled for allo bone marrow transplant. Assessment: Due to current COVID pandemic, bone marrow transplant has been postponed. Based on the record from [facility], patient currently is in MRD negative remission. According to patient, some form of chemotherapy is needed to maintain the remission. I have emailed Dr. Witt for more information. During this difficult time of COVID pandemic, I will work closely with Dr. Witt to facilitate any support service we can render at [facility]. Plan RTC in 2 weeks for follow up visit (tentatively)
[2019-11-25 14:21] LABS: Add Manual Diff / Slide Review NO; Basophils Absolute Auto 0 /uL (0-100); Basophils Percent Auto 0.4 % (0-2); Eosinophils Absolute Auto 100 /uL (0-450); Eosinophils Percent Auto 1.5 % (2-4); Hematocrit 25.7 % (36-46); Hemoglobin 9.2 g/dL (12.0-16.0); Lymphocytes Absolute Auto 200 /uL (1100-4500); Lymphocytes Percent Auto 4.9 % (25-40); Mean Corpuscular HGB Conc 35.9 % (30-36); Mean Corpuscular Hemoglobin 31.4 PG (26-34); Mean Corpuscular Volume 87.3 fL (80-100); Monocytes Absolute Auto 500 /uL (0-900); Monocytes Percent Auto 10.6 % (3-14); Neutrophils Absolute Auto 4100 /uL (1500-7000); Neutrophils Percent Auto 82.6 % (50-75); Red Blood Cell Count 2.95 X10^6/uL (4.0-5.2); Red Cell Distribution Width 17.8 % (11.6-14.8)
[2019-11-25 14:25] LABS: Platelet Count 32 X10^3/uL (150-400)
[2019-11-25 14:41] LABS: Platelet Estimate Decreased on smear
[2019-11-25 14:53] LABS: Alanine Aminotransferase 21 IU/L (<35); Albumin 4.4 g/dL (3.5-5.0); Albumin Globulin Ratio 1.6 (1.0-2.8); Alkaline Phosphatase 65 U/L (38-126); Aspartate Aminotransferase 25 IU/L (14-36); BUN Creatinine Ratio 38.6 (6-22); Bilirubin Total 0.3 mg/dL (0.2-1.3); Blood Urea Nitrogen 17 mg/dL (7-17); Calcium 9.5 mg/dL (8.4-10.2); Carbon Dioxide 27 mmol/L (22-32); Chloride 105 mmol/L (98-107); Estimated Glomerular Filt Rate > 60.0 mL/min (>60); Globulin 2.8 g/dL (1.7-4.1); Glucose 119 mg/dL (70-100); HEMOLYSIS < 15 (0-50); Potassium 3.8 mmol/L (3.4-5.1); Sodium 139 mmol/L (137-145); Total Protein 7.2 g/dL (6.3-8.2)
--- NOTE | 2019-12-02 10:04 | ONC.SCHED ---
patient called and asked to cancel 12/03/19 appt/she is at [facility] getting chemo this week, she will call to get back on Dr Saxena's schedule
--- NOTE | 2019-12-16 08:23 | ONC.SCHED ---
patient left voice mail to cancel this lab/she is having it done at [facility] today, she will call back to get back on our schedule for upcoming labs for [facility]
--- NOTE | 2019-12-16 13:49 | PC.NURSE ---
pt has dual lumen rnakin power port. labs drawn from red lumen; flushed with NS and Heparin 100u/ml. pt waiting for labs results.
[2019-12-16 13:58] LABS: Add Manual Diff / Slide Review NO; Basophils Absolute Auto 0 /uL (0-100); Basophils Percent Auto 0.2 % (0-2); Eosinophils Absolute Auto 0 /uL (0-450); Hematocrit 27.7 % (36-46); Hemoglobin 9.8 g/dL (12.0-16.0); Lymphocytes Absolute Auto 300 /uL (1100-4500); Lymphocytes Percent Auto 5.3 % (25-40); Mean Corpuscular HGB Conc 35.3 % (30-36); Mean Corpuscular Hemoglobin 30.7 PG (26-34); Monocytes Absolute Auto 1000 /uL (0-900); Monocytes Percent Auto 19.3 % (3-14); Neutrophils Absolute Auto 4000 /uL (1500-7000); Neutrophils Percent Auto 75.2 % (50-75); Red Blood Cell Count 3.19 X10^6/uL (4.0-5.2); Red Cell Distribution Width 14.8 % (11.6-14.8); White Blood Cell Count 5.4 X10^3/uL (4.5-11.0)
[2019-12-16 14:00] LABS: Platelet Count 20 X10^3/uL (150-400)
[2019-12-16 14:02] LABS: Alanine Aminotransferase 28 IU/L (<35); Albumin Globulin Ratio 1.7 (1.0-2.8); Alkaline Phosphatase 58 U/L (38-126); Aspartate Aminotransferase 20 IU/L (14-36); Bilirubin Total 0.1 mg/dL (0.2-1.3); Bilirubin Unconjugated 0.1 mg/dL (0.0-1.1); Blood Urea Nitrogen 24 mg/dL (7-17); Calcium 9.1 mg/dL (8.4-10.2); Carbon Dioxide 28 mmol/L (22-32); Chloride 100 mmol/L (98-107); Estimated Glomerular Filt Rate > 60.0 mL/min (>60); Globulin 2.3 g/dL (1.7-4.1); Glucose 154 mg/dL (70-100); HEMOLYSIS < 15 (0-50); Magnesium 1.9 mg/dL (1.6-2.3); Phosphorous 4.5 mg/dL (2.5-4.5); Potassium 3.6 mmol/L (3.4-5.1); Sodium 138 mmol/L (137-145); Total Protein 6.3 g/dL (6.3-8.2)
[2019-12-16 14:11] LABS: Platelet Estimate Decreased on smear
--- NOTE | 2019-12-16 14:17 | PC.NURSE ---
Addendum entered by Beverly Fuller R.N. 12/16/19 14:18: pt informed of results and copy of labs given to her Original Note: PLT 20. orders to transfuse plt < 10. called and left message to [facility] on plt results. results of labs faxed to [facility] [phone]
[2019-12-19 10:40] LABS: Add Manual Diff / Slide Review NO; Basophils Absolute Auto 0 /uL (0-100); Basophils Percent Auto 0.5 % (0-2); Eosinophils Absolute Auto 0 /uL (0-450); Hematocrit 27.6 % (36-46); Hemoglobin 9.8 g/dL (12.0-16.0); Lymphocytes Absolute Auto 200 /uL (1100-4500); Lymphocytes Percent Auto 4.3 % (25-40); Mean Corpuscular HGB Conc 35.5 % (30-36); Mean Corpuscular Hemoglobin 31.1 PG (26-34); Mean Corpuscular Volume 87.7 fL (80-100); Monocytes Absolute Auto 1000 /uL (0-900); Monocytes Percent Auto 21.8 % (3-14); Neutrophils Absolute Auto 3300 /uL (1500-7000); Neutrophils Percent Auto 73.4 % (50-75); Platelet Count 58 X10^3/uL (150-400); Red Blood Cell Count 3.15 X10^6/uL (4.0-5.2); Red Cell Distribution Width 14.7 % (11.6-14.8); White Blood Cell Count 4.4 X10^3/uL (4.5-11.0)
[2019-12-19 10:48] LABS: Alanine Aminotransferase 60 IU/L (<35); Albumin 4.2 g/dL (3.5-5.0); Albumin Globulin Ratio 1.6 (1.0-2.8); Alkaline Phosphatase 61 U/L (38-126); Aspartate Aminotransferase 40 IU/L (14-36); BUN Creatinine Ratio 32.6 (6-22); Bilirubin Total 0.3 mg/dL (0.2-1.3); Bilirubin Unconjugated 0.2 mg/dL (0.0-1.1); Blood Urea Nitrogen 14 mg/dL (7-17); Calcium 9.3 mg/dL (8.4-10.2); Carbon Dioxide 29 mmol/L (22-32); Chloride 101 mmol/L (98-107); Estimated Glomerular Filt Rate > 60.0 mL/min (>60); Globulin 2.6 g/dL (1.7-4.1); Glucose 127 mg/dL (70-100); HEMOLYSIS < 15 (0-50); Phosphorous 4.3 mg/dL (2.5-4.5); Potassium 3.9 mmol/L (3.4-5.1); Sodium 138 mmol/L (137-145); Total Protein 6.8 g/dL (6.3-8.2)
[2019-12-23 12:19] LABS: Hemoglobin 7.7 g/dL (12.0-16.0)
[2019-12-23 12:27] LABS: Alanine Aminotransferase 96 IU/L (<35); Albumin 3.9 g/dL (3.5-5.0); Albumin Globulin Ratio 1.6 (1.0-2.8); Alkaline Phosphatase 52 U/L (38-126); Aspartate Aminotransferase 51 IU/L (14-36); BUN Creatinine Ratio 26.7 (6-22); Bilirubin Total 0.2 mg/dL (0.2-1.3); Bilirubin Unconjugated 0.2 mg/dL (0.0-1.1); Blood Urea Nitrogen 12 mg/dL (7-17); Carbon Dioxide 27 mmol/L (22-32); Chloride 105 mmol/L (98-107); Estimated Glomerular Filt Rate > 60.0 mL/min (>60); Globulin 2.5 g/dL (1.7-4.1); Glucose 122 mg/dL (70-100); HEMOLYSIS < 15 (0-50); Magnesium 2.1 mg/dL (1.6-2.3); Phosphorous 4.4 mg/dL (2.5-4.5); Potassium 3.9 mmol/L (3.4-5.1); Sodium 138 mmol/L (137-145); Total Protein 6.4 g/dL (6.3-8.2)
[2019-12-23 12:33] LABS: Mean Corpuscular HGB Conc 35.9 % (30-36); Mean Corpuscular Hemoglobin 31.5 PG (26-34); Mean Corpuscular Volume 87.9 fL (80-100); Platelet Count 101 X10^3/uL (150-400); Red Blood Cell Count 2.43 X10^6/uL (4.0-5.2); Red Cell Distribution Width 14.6 % (11.6-14.8)
[2019-12-23 12:35] LABS: Add Manual Diff / Slide Review YES; Hematocrit 21.4 % (36-46); White Blood Cell Count 1.4 X10^3/uL (4.5-11.0)
[2019-12-23 12:47] LABS: Neutrophils Absolute Manual 840 /uL (3000-5900); Total Cells Counted 50
[2019-12-23 12:49] LABS: Anisocytosis 2+; Polychromasia 1+
--- NOTE | 2019-12-23 13:44 | PC.NURSE ---
PATIENT HERE FOR LABS, H/H 7.7/21.4. PATIENT HEART RATE AT 120. DR MIN INFORMED. PER DR MIN AND [facility] ORDERS WILL TRANSFUSE 1 U. IRRADIATED PRBC TOMORROW. PATIENT BANDED AND SCHEDULED FOR TOMORROW. DR MIN INFORMED PER LOW WBC. [facility] INFORMED PER TELEPHONE MESSAGE OF WBC AND H/H OF TODAY.
[2019-12-24 15:35] VITALS: BP 130/76; PULSE 134; RESP 18; TEMP 37.1
[2019-12-24 15:52] VITALS: BP 124/66; PULSE 129; RESP 18; TEMP 36.9
== END ==
PROVIDERS: PCP Family Medicine; Visit Provider Internal Medicine Hematology & Oncology
DX: C91.00 Acute lymphoblastic leukemia not having achieved remission (principal)
CPT/HCPCS: 36415; 36430; 36591; 36592; 38222; 80053; 80076; 83615; 83735; 84100; 85025; 86706; 86803; 86850; 86900; 86901; 86945; 87340; 96523; 99000; 99204; 99214; 99215; P9016; P9040

== ENCOUNTER → 2020-08-20 13:05 | Outpatient (CLI) | payer OTHER, SELFPAY ==
[2020-08-20 15:43] LABS: Add Manual Diff / Slide Review NO; Basophils Absolute Auto 100 /uL (0-100); Basophils Percent Auto 1.1 % (0-2); Eosinophils Absolute Auto 1100 /uL (0-450); Eosinophils Percent Auto 20.6 % (2-4); Hematocrit 36.8 % (36-46); Hemoglobin 12.4 g/dL (12.0-16.0); Lymphocytes Absolute Auto 1500 /uL (1100-4500); Lymphocytes Percent Auto 26.6 % (25-40); Mean Corpuscular HGB Conc 33.8 % (30-36); Mean Corpuscular Hemoglobin 32.8 PG (26-34); Monocytes Absolute Auto 600 /uL (0-900); Monocytes Percent Auto 10.9 % (3-14); Neutrophils Absolute Auto 2200 /uL (1500-7000); Neutrophils Percent Auto 40.8 % (50-75); Platelet Count 194 X10^3/uL (150-400); Red Blood Cell Count 3.79 X10^6/uL (4.0-5.2); White Blood Cell Count 5.5 X10^3/uL (4.5-11.0)
[2020-08-20 16:03] LABS: Alanine Aminotransferase 25 IU/L (<35); Albumin 3.9 g/dL (3.5-5.0); Albumin Globulin Ratio 1.6 (1.0-2.8); Alkaline Phosphatase 42 U/L (38-126); Aspartate Aminotransferase 38 IU/L (14-36); BUN Creatinine Ratio 26.3 (6-22); Bilirubin Total 0.1 mg/dL (0.2-1.3); Bilirubin Unconjugated 0.2 mg/dL (0.0-1.1); Blood Urea Nitrogen 15 mg/dL (7-17); Calcium 9.1 mg/dL (8.4-10.2); Carbon Dioxide 29 mmol/L (22-32); Chloride 105 mmol/L (98-107); Estimated Glomerular Filt Rate > 60.0 mL/min (>60); Globulin 2.4 g/dL (1.7-4.1); Glucose 102 mg/dL (70-100); HEMOLYSIS < 15 (0-50); Lactate Dehydrogenase 482 U/L (313-618); Magnesium 2.1 mg/dL (1.6-2.3); Phosphorous 3.7 mg/dL (2.5-4.5); Potassium 4.4 mmol/L (3.4-5.1); Sodium 137 mmol/L (137-145); Total Protein 6.3 g/dL (6.3-8.2)
== END ==
PROVIDERS: PCP Family Medicine
DX: C91.00 Acute lymphoblastic leukemia not having achieved remission (principal)
CPT/HCPCS: 36415; 80069; 80076; 83615; 83735; 85025

== ENCOUNTER → 2020-11-17 07:49 | Outpatient (CLI) | payer OTHER, SELFPAY ==
[2020-11-17] MEDS: COVID-19 VACC #1, MRNA(MOD) 100 MCG/0.5 ML VIAL IM (08:07)
== END ==
PROVIDERS: Visit Provider Internal Medicine
DX: Z23 Encounter for immunization (principal)
CPT/HCPCS: 0011A; 91301

== ENCOUNTER → 2020-11-30 13:03 | Outpatient (CLI) | payer OTHER, SELFPAY ==
[2020-11-30 14:42] LABS: Add Manual Diff / Slide Review NO; Basophils Absolute Auto 100 /uL (0-100); Basophils Percent Auto 0.7 % (0-2); Eosinophils Absolute Auto 0 /uL (0-450); Eosinophils Percent Auto 0.5 % (2-4); Hematocrit 38.9 % (36-46); Hemoglobin 13.2 g/dL (12.0-16.0); Lymphocytes Absolute Auto 2000 /uL (1100-4500); Lymphocytes Percent Auto 23.9 % (25-40); Mean Corpuscular HGB Conc 33.8 % (30-36); Mean Corpuscular Hemoglobin 32.5 PG (26-34); Mean Corpuscular Volume 96.2 fL (80-100); Monocytes Absolute Auto 700 /uL (0-900); Neutrophils Absolute Auto 5400 /uL (1500-7000); Neutrophils Percent Auto 65.9 % (50-75); Platelet Count 254 X10^3/uL (150-400); Red Blood Cell Count 4.05 X10^6/uL (4.0-5.2); Red Cell Distribution Width 13.5 % (11.6-14.8); White Blood Cell Count 8.2 X10^3/uL (4.5-11.0)
[2020-11-30 16:38] LABS: Alanine Aminotransferase 14 IU/L (<35); Albumin 3.7 g/dL (3.5-5.0); Albumin Globulin Ratio 1.8 (1.0-2.8); Alkaline Phosphatase 45 U/L (38-126); Aspartate Aminotransferase 25 IU/L (14-36); BUN Creatinine Ratio 19.4 (6-22); Bilirubin Unconjugated 0.2 mg/dL (0.0-1.1); Blood Urea Nitrogen 13 mg/dL (7-17); Calcium 9.2 mg/dL (8.4-10.2); Carbon Dioxide 29 mmol/L (22-32); Chloride 101 mmol/L (98-107); Estimated Glomerular Filt Rate > 60.0 mL/min (>60); Globulin 2.1 g/dL (1.7-4.1); Glucose 97 mg/dL (70-100); HEMOLYSIS < 15 (0-50); Lactate Dehydrogenase 475 U/L (313-618); Phosphorous 2.6 mg/dL (2.5-4.5); Potassium 4.2 mmol/L (3.4-5.1); Sodium 137 mmol/L (137-145); Total Protein 5.8 g/dL (6.3-8.2)
[2020-11-30 16:39] LABS: Bilirubin Total < 0.1 mg/dL (0.2-1.3)
== END ==
PROVIDERS: PCP Family Medicine; Referring Provider Nurse Practitioner Adult Health; Visit Provider Nurse Practitioner Adult Health
DX: C91.01 Acute lymphoblastic leukemia, in remission (principal)
CPT/HCPCS: 36415; 80069; 80076; 83615; 83735; 85025

== ENCOUNTER → 2020-12-16 08:05 | Outpatient (CLI) | payer OTHER, SELFPAY ==
[2020-12-16] MEDS: COVID-19 VACC #2, MRNA(MOD) 100 MCG/0.5 ML VIAL IM (08:16)
== END ==
PROVIDERS: PCP Family Medicine; Visit Provider Internal Medicine
DX: Z23 Encounter for immunization (principal)
CPT/HCPCS: 0012A; 91301

== ENCOUNTER → 2020-12-31 11:57 | Outpatient (CLI) | payer OTHER, SELFPAY ==
[2020-12-31 14:33] LABS: Add Manual Diff / Slide Review NO; Basophils Absolute Auto 100 /uL (0-100); Basophils Percent Auto 0.9 % (0-2); Eosinophils Absolute Auto 0 /uL (0-450); Eosinophils Percent Auto 0.4 % (2-4); Hematocrit 40.7 % (36-46); Hemoglobin 13.8 g/dL (12.0-16.0); Lymphocytes Absolute Auto 1800 /uL (1100-4500); Lymphocytes Percent Auto 15.8 % (25-40); Mean Corpuscular HGB Conc 33.8 % (30-36); Mean Corpuscular Hemoglobin 32.9 PG (26-34); Mean Corpuscular Volume 97.2 fL (80-100); Monocytes Absolute Auto 400 /uL (0-900); Monocytes Percent Auto 3.6 % (3-14); Neutrophils Absolute Auto 9300 /uL (1500-7000); Neutrophils Percent Auto 79.3 % (50-75); Platelet Count 321 X10^3/uL (150-400); Red Blood Cell Count 4.19 X10^6/uL (4.0-5.2); Red Cell Distribution Width 13.3 % (11.6-14.8); White Blood Cell Count 11.7 X10^3/uL (4.5-11.0)
[2020-12-31 16:57] LABS: Alanine Aminotransferase 15 IU/L (<35); Albumin 4.1 g/dL (3.5-5.0); Albumin Globulin Ratio 1.7 (1.0-2.8); Alkaline Phosphatase 47 U/L (38-126); Aspartate Aminotransferase 26 IU/L (14-36); BUN Creatinine Ratio 23.3 (6-22); Bilirubin Total 0.2 mg/dL (0.2-1.3); Bilirubin Unconjugated 0.1 mg/dL (0.0-1.1); Blood Urea Nitrogen 14 mg/dL (7-17); Calcium 9.7 mg/dL (8.4-10.2); Carbon Dioxide 29 mmol/L (22-32); Chloride 99 mmol/L (98-107); Estimated Glomerular Filt Rate > 60.0 mL/min (>60); Globulin 2.4 g/dL (1.7-4.1); Glucose 94 mg/dL (70-100); HEMOLYSIS < 15 (0-50); Phosphorous 3.6 mg/dL (2.5-4.5); Potassium 4.2 mmol/L (3.4-5.1); Sodium 137 mmol/L (137-145); Total Protein 6.5 g/dL (6.3-8.2)
== END ==
PROVIDERS: PCP Family Medicine; Referring Provider Nurse Practitioner; Visit Provider Nurse Practitioner
DX: C91.00 Acute lymphoblastic leukemia not having achieved remission (principal)
CPT/HCPCS: 36415; 80069; 80076; 80195; 85025

== ENCOUNTER → 2021-01-07 12:57 | Outpatient (CLI) | payer OTHER, SELFPAY ==
[2021-01-07 14:16] LABS: Add Manual Diff / Slide Review NO; Basophils Absolute Auto 0 /uL (0-100); Basophils Percent Auto 0.5 % (0-2); Eosinophils Absolute Auto 0 /uL (0-450); Hematocrit 40.2 % (36-46); Hemoglobin 13.3 g/dL (12.0-16.0); Lymphocytes Absolute Auto 800 /uL (1100-4500); Lymphocytes Percent Auto 9.3 % (25-40); Mean Corpuscular HGB Conc 33.1 % (30-36); Mean Corpuscular Hemoglobin 32.3 PG (26-34); Mean Corpuscular Volume 97.4 fL (80-100); Monocytes Absolute Auto 100 /uL (0-900); Monocytes Percent Auto 1.4 % (3-14); Neutrophils Absolute Auto 7700 /uL (1500-7000); Neutrophils Percent Auto 88.8 % (50-75); Platelet Count 241 X10^3/uL (150-400); Red Blood Cell Count 4.13 X10^6/uL (4.0-5.2); Red Cell Distribution Width 12.9 % (11.6-14.8); White Blood Cell Count 8.7 X10^3/uL (4.5-11.0)
[2021-01-07 14:58] LABS: Alanine Aminotransferase 16 IU/L (<35); Albumin 4.2 g/dL (3.5-5.0); Albumin Globulin Ratio 1.6 (1.0-2.8); Alkaline Phosphatase 45 U/L (38-126); Aspartate Aminotransferase 29 IU/L (14-36); BUN Creatinine Ratio 23.5 (6-22); Bilirubin Total 0.2 mg/dL (0.2-1.3); Bilirubin Unconjugated 0.1 mg/dL (0.0-1.1); Blood Urea Nitrogen 16 mg/dL (7-17); Calcium 9.8 mg/dL (8.4-10.2); Carbon Dioxide 25 mmol/L (22-32); Chloride 101 mmol/L (98-107); Estimated Glomerular Filt Rate > 60.0 mL/min (>60); Globulin 2.6 g/dL (1.7-4.1); Glucose 172 mg/dL (70-100); HEMOLYSIS < 15 (0-50); Phosphorous 3.3 mg/dL (2.5-4.5); Sodium 136 mmol/L (137-145); Total Protein 6.8 g/dL (6.3-8.2)
[2021-01-08 13:48] LABS: Sirolimus 3.9 ng/mL (3.0-20.0)
== END ==
PROVIDERS: Internal Medicine; PCP Family Medicine; Referring Provider Nurse Practitioner Adult Health; Visit Provider Nurse Practitioner Adult Health
DX: C91.00 Acute lymphoblastic leukemia not having achieved remission (principal)
CPT/HCPCS: 36415; 80069; 80076; 80195; 85025

== ENCOUNTER → 2021-01-14 10:17 | Outpatient (CLI) | payer OTHER, SELFPAY ==
[2021-01-14 11:11] LABS: Add Manual Diff / Slide Review NO; Basophils Absolute Auto 100 /uL (0-100); Basophils Percent Auto 1.2 % (0-2); Eosinophils Absolute Auto 0 /uL (0-450); Eosinophils Percent Auto 0.4 % (2-4); Hematocrit 40.2 % (36-46); Hemoglobin 13.4 g/dL (12.0-16.0); Lymphocytes Absolute Auto 1800 /uL (1100-4500); Lymphocytes Percent Auto 22.6 % (25-40); Mean Corpuscular HGB Conc 33.3 % (30-36); Mean Corpuscular Volume 96.2 fL (80-100); Monocytes Absolute Auto 400 /uL (0-900); Monocytes Percent Auto 4.9 % (3-14); Neutrophils Absolute Auto 5800 /uL (1500-7000); Neutrophils Percent Auto 70.9 % (50-75); Platelet Count 250 X10^3/uL (150-400); Red Blood Cell Count 4.18 X10^6/uL (4.0-5.2); Red Cell Distribution Width 12.7 % (11.6-14.8); White Blood Cell Count 8.2 X10^3/uL (4.5-11.0)
[2021-01-14 11:45] LABS: Alanine Aminotransferase 15 IU/L (<35); Albumin Globulin Ratio 1.5 (1.0-2.8); Alkaline Phosphatase 38 U/L (38-126); Aspartate Aminotransferase 24 IU/L (14-36); BUN Creatinine Ratio 20.3 (6-22); Bilirubin Total 0.3 mg/dL (0.2-1.3); Bilirubin Unconjugated 0.2 mg/dL (0.0-1.1); Blood Urea Nitrogen 12 mg/dL (7-17); Calcium 9.7 mg/dL (8.4-10.2); Carbon Dioxide 28 mmol/L (22-32); Chloride 101 mmol/L (98-107); Estimated Glomerular Filt Rate > 60.0 mL/min (>60); Globulin 2.6 g/dL (1.7-4.1); Glucose 101 mg/dL (70-100); HEMOLYSIS < 15 (0-50); Magnesium 2.3 mg/dL (1.6-2.3); Phosphorous 2.7 mg/dL (2.5-4.5); Potassium 3.9 mmol/L (3.4-5.1); Sodium 137 mmol/L (137-145); Total Protein 6.6 g/dL (6.3-8.2)
== END ==
PROVIDERS: PCP Family Medicine; Referring Provider Internal Medicine; Visit Provider Internal Medicine
DX: C91.00 Acute lymphoblastic leukemia not having achieved remission (principal)
CPT/HCPCS: 36415; 80069; 80076; 80195; 83735; 85025

== ENCOUNTER → 2021-01-22 09:49 | Outpatient (CLI) | payer OTHER, SELFPAY ==
[2021-01-22 11:16] LABS: Add Manual Diff / Slide Review NO; Basophils Absolute Auto 100 /uL (0-100); Basophils Percent Auto 1.3 % (0-2); Eosinophils Absolute Auto 0 /uL (0-450); Eosinophils Percent Auto 0.5 % (2-4); Hemoglobin 13.4 g/dL (12.0-16.0); Lymphocytes Absolute Auto 1900 /uL (1100-4500); Lymphocytes Percent Auto 28.1 % (25-40); Mean Corpuscular HGB Conc 33.6 % (30-36); Mean Corpuscular Volume 95.4 fL (80-100); Monocytes Absolute Auto 600 /uL (0-900); Neutrophils Absolute Auto 4200 /uL (1500-7000); Neutrophils Percent Auto 61.1 % (50-75); Platelet Count 258 X10^3/uL (150-400); Red Cell Distribution Width 12.4 % (11.6-14.8); White Blood Cell Count 6.9 X10^3/uL (4.5-11.0)
[2021-01-22 11:46] LABS: Alanine Aminotransferase 15 IU/L (<35); Albumin Globulin Ratio 1.9 (1.0-2.8); Alkaline Phosphatase 34 U/L (38-126); Aspartate Aminotransferase 25 IU/L (14-36); BUN Creatinine Ratio 17.1 (6-22); Bilirubin Total 0.3 mg/dL (0.2-1.3); Bilirubin Unconjugated 0.2 mg/dL (0.0-1.1); Blood Urea Nitrogen 12 mg/dL (7-17); Calcium 9.7 mg/dL (8.4-10.2); Carbon Dioxide 30 mmol/L (22-32); Chloride 102 mmol/L (98-107); Estimated Glomerular Filt Rate > 60.0 mL/min (>60); Globulin 2.1 g/dL (1.7-4.1); Glucose 92 mg/dL (70-100); HEMOLYSIS < 15 (0-50); Magnesium 2.1 mg/dL (1.6-2.3); Phosphorous 3.6 mg/dL (2.5-4.5); Potassium 4.3 mmol/L (3.4-5.1); Sodium 137 mmol/L (137-145); Total Protein 6.1 g/dL (6.3-8.2)
[2021-01-23 13:18] LABS: Sirolimus 2.1 ng/mL (3.0-20.0)
== END ==
PROVIDERS: PCP Family Medicine; Referring Provider Internal Medicine; Visit Provider Internal Medicine
DX: C91.00 Acute lymphoblastic leukemia not having achieved remission (principal)
CPT/HCPCS: 36415; 80069; 80076; 80195; 83735; 85025

== ENCOUNTER → 2021-04-22 12:28 | Outpatient (CLI) | payer OTHER, SELFPAY ==
--- NOTE | 2021-04-22 | DI.CT.S_ITS ---
PROCEDURE: CT CHEST WO/W CON INDICATIONS: Acute lymphoblastic leukemia, in remission TECHNIQUE: CT images were acquired in the prone position from the midtrachea to the lung bases. Dynamic images were acquired in 3 slabs of the chest. CT of the chest post-contrast was acquired. Axial and sagittal reformations were performed. Axial MIP images were acquired. COMPARISON: [facility], CT, CT CHEST ABD PEL W CON, 07/16/2019, 10:21. FINDINGS: Lungs: Interlobular septal thickening right perihilar. Left lower lobe calcified granuloma. Minimal streaky opacity at the right lung base. The central airway is clear. There is narrowing of the right middle lobe bronchus, (8/136), new. No air trapping demonstrated. Pleura: No pleural effusion. No pneumothorax. Mediastinum/hilum/axilla: Right hilar/mediastinum masslike hypodense thickening. This measures approximately 5.5 x 3.7 cm, (9/25). The thickening along the right mediastinum is increased. There is decreased thickening at the left and anterior mediastinum compared to 07/16/2019. There is narrowing of the right pulmonary artery, (9/25), new. There is narrowing of the right superior pulmonary vein which is also new. Narrowing of the distal SVC appears progressed. Heart size is normal. No pericardial effusion. Small shotty appearing axillary lymph nodes bilaterally. Prior CT demonstrated axillary adenopathy. No supraclavicular adenopathy seen. No thyroid nodules. Bones: No suspicious lesion. Visualized upper abdomen: No significant abnormality. Enlarged retrocrural lymph nodes are no longer seen. IMPRESSION: 1. There is new narrowing of the right middle lobe bronchus, right pulmonary artery, and right superior pulmonary vein. Narrowing of the SVC appears progressed. 2. Mass like thickening at the right mediastinum and hilum which is increased compared to 2019 consistent with worsening malignancy. It is somewhat atypical for lymphoma to cause compression. 3. The anterior and left mediastinal thickening is decreased. The previously seen enlarged axillary and retrocrural nodes are no longer enlarged. 4. Suspect pulmonary vasculature engorgement in the right perihilar region. If more recent comparisons CTs become available, a comparison can be performed. A call was placed to the office of Artemio Ordonez at time of dictation. The staff will make care team aware of new findings. Dictated by: Cali Ramirez M.D. on 04/22/2021 at 12:27 Approved by: Cali Ramirez M.D. on 04/22/2021 at 12:55
== END ==
PROVIDERS: PCP Family Medicine; Referring Provider Family Medicine; Visit Provider Family Medicine
DX: C91.01 Acute lymphoblastic leukemia, in remission (principal)
CPT/HCPCS: 71270; Q9967

== ENCOUNTER → 2021-07-12 11:49 | Outpatient (CLI) | payer OTHER, SELFPAY ==
[2021-07-12 13:25] LABS: Add Manual Diff / Slide Review NO; Basophils Absolute Auto 0 /uL (0-100); Basophils Percent Auto 0.3 % (0-2); Eosinophils Absolute Auto 0 /uL (0-450); Eosinophils Percent Auto 0.1 % (2-4); Hematocrit 25.6 % (36-46); Hemoglobin 8.8 g/dL (12.0-16.0); Lymphocytes Absolute Auto 300 /uL (1100-4500); Lymphocytes Percent Auto 6.9 % (25-40); Mean Corpuscular HGB Conc 34.2 % (30-36); Mean Corpuscular Hemoglobin 31.1 PG (26-34); Mean Corpuscular Volume 90.9 fL (80-100); Monocytes Absolute Auto 800 /uL (0-900); Monocytes Percent Auto 16.9 % (3-14); Neutrophils Absolute Auto 3800 /uL (1500-7000); Neutrophils Percent Auto 75.8 % (50-75); Platelet Count 130 X10^3/uL (150-400); Red Blood Cell Count 2.82 X10^6/uL (4.0-5.2); Red Cell Distribution Width 14.9 % (11.6-14.8)
== END ==
PROVIDERS: PCP Family Medicine; Referring Provider Nurse Practitioner; Visit Provider Nurse Practitioner
DX: C91.02 Acute lymphoblastic leukemia, in relapse (principal)
CPT/HCPCS: 36415; 85025